=== PATIENT | female | born 1960 | race Caucasian/White ===

== ENCOUNTER 2018-08-23 07:59 | Outpatient (CLI) | payer OTHER ==
--- NOTE | 2018-08-23 09:29 | BD ---
BONE DENSITOMETRY USING DEXA: Date: 08/23/18 HISTORY: Postmenopausal screening for osteoporosis. FINDINGS: Lumbar Spine: BMD (g/cm2) L1 1.211 T-Score: 2.0 Z-Score: 3.2 L2 1.397 T-Score: 3.4 Z-Score: 4.6 L3 1.479 T-Score: 3.6 Z-Score: 4.9 L4 1.510 T-Score: 4.1 Z-Score: 5.5 L1-L4 1.406 T-Score: 3.3 Z-Score: 4.6 Femoral Neck: 1.041 T-Score: 1.7 Z-Score: 2.9 Total Femur: 1.337 T-Score: 3.2 Z-Score: 4.1 IMPRESSION: Normal bone mineral density. No evidence of osteopenia/osteoporosis. POS: C
== END 2018-08-23 08:00 | disposition home or self-care (01) ==
LOC: BICMAMMO 07:59
PROVIDERS: ATTEND Family Medicine
DX: Z12.31 Encounter for screening mammogram for malignant neoplasm of breast (principal); Z78.0 Asymptomatic menopausal state; N64.89 Other specified disorders of breast
CPT/HCPCS: 77063; 77067; 77080

== ENCOUNTER 2018-08-30 09:11 | Outpatient (CLI) | payer OTHER ==
--- NOTE | 2018-08-30 11:14 | ULT ---
RIGHT BREAST ULTRASOUND UNILATERAL LIMITED: HISTORY: A 58-year-old female presents for right breast ultrasound to evaluate an area of asymmetric density i n the upper outer right breast. FINDINGS: There is some asymmetric tissue in the right breast with some nonspecific shadowing but no evidence f or a discrete mass. Prior mammogram of 08/30/2018 is compared to an older mammogram examination from 09/04/2013, with no significant change in the appearance of the study from the old mammogram, given differences in breast density and technique. IMPRESSION: BI-RADS category 3-Probable benign findings. Six month follow-up right unilateral diagnostic mammogr am and right breast ultrasound is recommended for further assessment. The findings were discussed with the patient, who is in agreement with proceeding to the short-term s urveillance. POS: OFF
== END 2018-08-30 09:12 | disposition home or self-care (01) ==
LOC: BICMAMMO 09:11
PROVIDERS: ATTEND Family Medicine
DX: R92.2 Inconclusive mammogram (principal); R92.1 Mammographic calcification found on diagnostic imaging of breast; N64.89 Other specified disorders of breast
CPT/HCPCS: G0279

== ENCOUNTER 2019-09-14 13:53 | Outpatient (CLI) | payer OTHER ==
--- NOTE | 2019-09-14 15:09 | MRI ---
EXAM: Right knee MRI without contrast: HISTORY: Internal derangement right knee, injury, felt a pop, pain COMPARISON: None FINDINGS: Multiplanar, multisequence MRI examination of the knees performed. Slightly more prominent than normal joint fluid. [id number] tricompartment cartilage loss inclu ding the medial patellar facet. Incomplete fat saturation on multiple sequences, lowers the sensitivity of this study. Medial meniscus: Irregular posterior root tear. Lateral meniscus: Borderline upper range of normal in size with prominent intrameniscal signal probab ly related to intrasubstance degenerative signal. No acute tear. Anterior cruciate ligament:ACL thickening, but no evidence for acute tear. And has increased signal a nd some periligamentous cystic change proximally evidence for mucoid degeneration Posterior cruciate ligament: Intact. Medial collateral ligament complex: Intact. Lateral collateral ligament complex: Intact. Quadriceps and patellar tendons: Intact. Extensor mechanism: Unremarkable. No evidence for acute osteochondral defect or abnormal marrow signal. IMPRESSION: Minimal joint effusion. Irregular small posterior root tear medial meniscus. Borderline size lateral meniscus with intrasubstance degenerative signal but no acute tear. Evidence for ACL mucoid degeneration.
== END 2019-09-14 13:54 | disposition home or self-care (01) ==
LOC: TBSIIMAG 13:53
PROVIDERS: ATTEND Family Medicine
DX: M23.91 Unspecified internal derangement of right knee (principal); M25.461 Effusion, right knee; S83.241A Other tear of medial meniscus, current injury, right knee, initial encounter; M17.11 Unilateral primary osteoarthritis, right knee

== ENCOUNTER 2020-04-04 08:25 | Outpatient (CLI) | payer OTHER ==
--- NOTE | 2020-04-04 09:36 | MMO ---
Bilateral MAMMO Bilat Diag [facility]. CLINICAL HISTORY: Patient is 60 years old and is seen for diagnostic exam. The patient has the following family history of breast cancer: grandmother, malignant (generic). The patient has no personal history of cancer. VIEWS: The views performed were: bilateral mediolateral oblique with tomosynthesis; bilateral craniocaudal with tomosynthesis; bilateral mediolateral with tomosynthesis; right mediolateral oblique spot compression magnification; and right craniocaudal spot compression magnification. FILMS COMPARED: The present examination has been compared to prior imaging studies performed at [facility] on 08/23/2018, 08/30/2018 and 04/04/2020, and at [facility] on 09/04/2013. This study has been interpreted with the assistance of computer-aided detection. MAMMOGRAM FINDINGS: There are scattered fibroglandular densities. There is a stable focal asymmetry seen in the right breast. In the left breast, there are no suspicious masses, calcifications or areas of architectural distortion. IMPRESSION: STABLE FOCAL ASYMMETRY IN THE RIGHT BREAST IS PROBABLY BENIGN. FOLLOW-UP IN 6 MONTHS IS RECOMMENDED. THE RESULTS OF THIS EXAM WERE SENT TO THE PATIENT. ACR BI-RADS Category 3 - Probably benign finding - short interval follow-up suggested. [facility] will notify the patient of the need for additional imaging services. MAMMOGRAPHY NOTE: 1. A negative mammogram report should not delay a biopsy if a dominant of clinically suspicious mass is present. 2. Approximately 10% to 15% of breast cancers are not detected by mammography. 3. Adenosis and dense breasts may obscure an underlying neoplasm. Reported by: ROOPA IVY MD Electonically Signed: [id number]
--- NOTE | 2020-04-04 09:42 | ULT ---
LIMITED RIGHT BREAST ULTRASOUND: Date: 04/04/2020 HISTORY: Abnormal mammogram. COMPARISON: Ultrasound dated 08/30/2018. FINDINGS: Correlation made with mammograms of today. Sonographic evaluation of the 10 o'clock position of the right upper outer breast demonstrates no und erlying mass or other abnormality. Findings are similar to those seen on the exam of 08/30/2018. IMPRESSION: BI-RADS Category 3 - Probably benign findings. A 6 month follow-up right diagnostic mammogram and rig ht breast ultrasound are recommended. The facility will notify patient of need for additional imaging services. POS: OFF
== END 2020-04-04 08:26 | disposition home or self-care (01) ==
LOC: BICMAMMO 08:25
PROVIDERS: ATTEND Family Medicine
DX: R92.8 Other abnormal and inconclusive findings on diagnostic imaging of breast (principal); N64.89 Other specified disorders of breast
CPT/HCPCS: 77066; G0279

== ENCOUNTER 2020-09-23 07:51 | Outpatient (CLI) | payer OTHER ==
--- NOTE | 2020-09-23 08:50 | MRI ---
MRI lumbar spine Without IV contrast INDICATIONS: Low back pain. Lumbar radiculopathy. COMPARISON:None. FINDINGS: Vertebral bodies maintain normal height and alignment and exhibit normal signal. Degenerative osteoph ytes from the lumbar vertebra. Degenerative disc changes. Loss of disc space height at L1-2, L2-3, L3-4. T12-L1:No significant disc bulge or protrusion. No central canal or foraminal stenosis. L1-2:Broad-based disc bulge. Facet arthrosis and hypertrophy. Mild central canal stenosis. L2-3:Broad-based disc bulge. Facet hypertrophy. Mild central canal stenosis. L3-4:Broad-based disc bulge. Facet hypertrophy. Mild central canal stenosis. L4-5:Prominent diffuse disc bulge. Prominent facet and ligamentous hypertrophy. Moderate to severe ce ntral canal stenosis. Asymmetric disc protrusion to the left with encroachment into the left foraminal zone. Contact with the exiting left L4 nerve root. L5-S1:Annular tear with focal disc protrusion centrally and broad-based disc bulge. Prominent facet h ypertrophy. Moderate central canal stenosis. Bilateral foraminal stenosis, more severe on the left. No soft tissue abnormality identified. IMPRESSION: 1.Multilevel degenerative disc findings as described above. Prominent abnormalities at L4-5 and L5-S1 .
== END 2020-09-23 07:52 | disposition home or self-care (01) ==
LOC: BICMRI 07:51
PROVIDERS: ATTEND Family Medicine
DX: M47.26 Other spondylosis with radiculopathy, lumbar region (principal); M47.27 Other spondylosis with radiculopathy, lumbosacral region
CPT/HCPCS: 72148